=== PATIENT | male | born 1935 | race Caucasian/White ===

== ENCOUNTER 2019-07-16 19:21 | Inpatient (IN) | payer MEDICARE ==
[~2019-07-16] VITALS: Ht 175.3 cm; Wt 56.2 kg
--- NOTE | 2019-07-16 19:43 | NUR ---
PATIENT [facility] #144 FOR FLU LIKE SYMPTOMS. COUGH/LOW PO2 AT FACILITY OF 87 ON ROOM AIR. PATIENT AOX2. NOTED WITH OCCASIONAL NON PRODUCTIVE COUGH. CURRENT O2 SAT AT 98%.
[2019-07-16 20:03] LABS: BASOPHILS % (AUTO) 0.5 % (0.0-2.0); HEMATOCRIT 36.8 % (36.7-47.1); HEMOGLOBIN 12.8 g/dL (12.5-16.3); LYMPHOCYTES # (AUTO) 1.3 K/uL (20.0-40.0); LYMPHOCYTES % (AUTO) 14.3 % (20.5-51.5); MEAN CORPUSCULAR HEMOGLOBIN 31.1 uug (23.8-33.4); MEAN CORPUSCULAR HGB CONC 35 g/dL (32.5-36.3); MEAN CORPUSCULAR VOLUME 89.6 fL (73.0-96.2); MONOCYTES # (AUTO) 0.7 K/uL (2.0-10.0); MONOCYTES % (AUTO) 7.8 % (0.0-11.0); NEUTROPHILS # (AUTO) 6.9 K/uL (1.8-8.9); NEUTROPHILS % (AUTO) 77.4 % (38.5-71.5); PLATELET COUNT (AUTO) 199 K/uL (152-348); RED BLOOD CELL COUNT(AUTO) 4.11 MIL/uL (4.06-5.63)
[2019-07-16 20:12] LABS: POTASSIUM 4.1 mmol/L (3.5-5.1)
[2019-07-16 20:27] LABS: BILIRUBIN,DIRECT 0.2 mg/dL (0.0-0.2); BILIRUBIN,TOTAL 0.7 mg/dL (0.2-1.0); TOTAL PROTEIN, SERUM 7.9 g/dL (6.4-8.2)
[2019-07-16] MEDS ORDERED: ACETAMINOPHEN ES 500 MG TABLET ONE (20:27)
[2019-07-16] MEDS ORDERED: ACETAMINOPHEN ES 500 MG TABLET PO ONE (20:30)
[2019-07-16] MEDS ORDERED: LEVOFLOXACIN 750 MG/D5W 150 ML PIGGYBACK IV ONE (21:00)
--- NOTE | 2019-07-16 21:02 | NUR ---
Epic panel call placed, spoke to Cami stated she will get a hold of Dr. Jauregui for admitting.
[2019-07-16] MEDS ORDERED: LEVOFLOXACIN 750MG/D5W 150 ML IV ONE (21:10)
--- NOTE | 2019-07-16 21:14 | NUR ---
Dr Robins on panel call with Dr. Jauregui. Patient accepted for admission to Tele, Dx Resp. Failure .
--- NOTE | 2019-07-16 21:28 | NUR ---
Report given to Tele nurse Ramos. Patient will be admitted with Dx. of resp. failure under Dr. Jauregui on Rm #[id number].
[2019-07-16] MEDS ORDERED: Z GUARD REMEDY PASTE 57 GM TUBE TOP PRN (21:30)
[2019-07-16] MEDS ORDERED: HYDROCODONE/APAP 5-325MG TABLET PO PRN (21:30)
[2019-07-16] MEDS ORDERED: MAGNESIUM HYDROXIDE 30 ML LIQUID UDC PO PRN (21:30)
[2019-07-16] MEDS ORDERED: ONDANSETRON 4 MG/2 ML VIAL IV PRN (21:30)
[2019-07-16] MEDS ORDERED: ACETAMINOPHEN 325 MG TABLET PO PRN (21:30)
--- NOTE | 2019-07-16 21:36 | NUR ---
Telephone call from [facility] spoke to Cheyanne and gave update on patient condition and diagnosis of Respiratory Failure.
--- NOTE | 2019-07-16 21:57 | NUR ---
Pt. admitted to Tele floor, under care of Dr. Jauregui. Belongs List completed.
[2019-07-16 22:24] VITALS: BP 111/71
[2019-07-16] MEDS: IV NS 1000 ML 1,000 ML IV SCH (22:25)
--- NOTE | 2019-07-16 22:30 | NUR ---
Received patient on unit around 0, via gurney wheeled in by ER nurse. Pt awake, alert and oriented x 2. Able to state his name and time of day, but had to be reminded of where he is and why he is here. Able to answer simple questions, but with some delay and episodes of refusing to answer. Unable to get full history on patient, with this condition, but able to answer most of it. All belongings accounted for. Initial admission process started. Skin intact, with some slight redness on sacral area. Mepilex placed for protection. Dr. Jauregui confirmed that patient will not be on TELE, but Med Surg. Kept call light within reach, education provided on use of call light and other fall/safety precautions. Will continue to monitor.
[2019-07-17] MEDS ORDERED: IV NORMAL SALINE 500 ML IV ONE (01:15)
[2019-07-17 05:12] VITALS: BP 141/76
--- NOTE | 2019-07-17 06:02 | NUR ---
Slept well through the night with no adverse issues. Patient refused labs and insertion of in and out catheter to take urine sample. Unable to be given full directions to pee on the urinal for clean catch. Noted with generalized weakness and episodic confusion. Risks and benefits explained Will continue to monitor.
--- NOTE | 2019-07-17 08:00 | NUR ---
received pt. resting in bed. Pt. has IV in L wrist 20 gauge intact patent running prescribed fluids. pt. denies pain/ discomfort. pt. denies SOB/ difficulty breathing. Safety measures in place. call light within reach. will continue to monitor pt.
[2019-07-17] MEDS ORDERED: LACTOSE FREE FOOD PO SCH (09:00)
[2019-07-17] MEDS: MULTIVITAMINS,THERAPEUTIC TABLET PO SCH (09:38)
[2019-07-17] MEDS: FLUOXETINE HCL 20 MG CAPSULE PO SCH (09:38)
[2019-07-17] MEDS: ATENOLOL 50 MG TABLET PO SCH (09:39)
[2019-07-17] MEDS: CHOLECALCIFEROL 1,000 UNIT TABLET PO SCH (09:39)
[2019-07-17] MEDS: ASPIRIN 81 MG TAB.CHEW PO SCH (09:39)
[2019-07-17] MEDS: DOCUSATE SODIUM 100 MG CAPSULE PO SCH ×2 (09:39→18:05)
[2019-07-17] MEDS: VALSARTAN 160 MG TABLET PO SCH (09:39)
[2019-07-17] MEDS: CYANOCOBALAMIN 1,000 MCG TABLET PO SCH (09:41)
[2019-07-17 11:10] VITALS: BP 145/76
[2019-07-17] MEDS: ENSURE CLEAR 240 ML LIQUID (MIX BERRY) PO SCH ×2 (11:12→18:05)
[2019-07-17] MEDS: IV NS 1000 ML 1,000 ML IV SCH (11:39)
--- NOTE | 2019-07-17 12:24 | NUR ---
WOUND CARE CONSULT: PT PRESENTS WITH SACRAL SCAR, PRESENT ON ADMISSION. PT IS INCONTINENT. RECOMMENDATIONS MADE FOR SKIN PROTECTION. DISCUSSED WITH NURSING STAFF. WILL SEE PRN. MOYA IN AGREEMENT WITH PLAN OF CARE. CURRENT ANISH SCORE IS 16. Addendum: 07/17/19 at 1225 by MARK SOLIS RN Amended: Links added.
[2019-07-17 15:15] VITALS: BP 133/81
[2019-07-17 19:07] LABS: *BILIRUBIN,URIN NEGATIVE (NEGATIVE); *BLOOD, URINE NEGATIVE (NEGATIVE); *CLARITY,URINE CLEAR (CLEAR); *COLOR,URINE YELLOW (YELLOW); *KETONES,URINE NEGATIVE (NEGATIVE); LEUKOCYTE ESTERASE ,URINE NEGATIVE (NEGATIVE); NITRITE, URINE NEGATIVE (NEGATIVE); UGLUCOSE NEGATIVE (NEGATIVE)
--- NOTE | 2019-07-17 19:22 | NUR ---
Pt. resting in bed. Pt. removed IV in L wrist 20 gauge. Attempted to put in new IV will have PM nurse try. Provided pt. with tylenol per request of pt. for mild pain. pt. denies SOB/ difficulty breathing. Pt O2 within normal limits on room air. Spoke to son about plan of care. Phone number of karina Olivarez is [phone]. Safety measures in place. call light within reach. will continue to monitor pt.
[2019-07-17 20:11] LABS: BACTERIA,URINE NONE SEEN /HPF (NONE SEEN); MUCUS,URINE FEW /LPF (0-FEW); RBC,URINE 0-3 /HPF (0-3); SQUAMOUS EPITHELIAL CELL,UR NONE SEEN /HPF (NONE SEEN); WBC,URINE 0-3 /HPF (0-3)
[2019-07-17] MEDS: TRAZODONE 50 MG TABLET PO SCH (20:56)
[2019-07-17] MEDS: ATORVASTATIN 10 MG TABLET PO SCH (20:56)
[2019-07-17 21:03] VITALS: BP 155/67
[2019-07-17] MEDS: LEVOFLOXACIN 500 MG/D5W 500 MG in PREMIXED 1 EACH IV SCH (21:18)
[2019-07-17] MEDS ORDERED: GUAIFENESIN/CODEINE 5 ML LIQUID UDC PO PRN (22:30)
--- NOTE | 2019-07-18 00:45 | NUR ---
endorsed to KELSEY Mcguire d/t change of assignment.
[2019-07-18] MEDS ORDERED: IV NS 1000 ML 1,000 ML IV PRN (01:00)
[2019-07-18 05:00] VITALS: BP 117/69
--- NOTE | 2019-07-18 05:14 | NUR ---
Patient sleep well last night. In no acute distress. Denies any pain or SOB. VS WNL. IV site on left FA intact and patent. IVF infusing. No adverse reaction noted from IV ABX. Needs assessed and attended to. Safety measure maintained and call guerrero within reached.
[2019-07-18 06:53] LABS: EOSINOPHILS % (AUTO) 0.2 % (0.0-7.0); LYMPHOCYTES # (AUTO) 1.6 K/uL (20.0-40.0); MONOCYTES # (AUTO) 0.6 K/uL (2.0-10.0)
[2019-07-18 06:59] LABS: CARBON DIOXIDE 26 mmol/L (21-32); CHLORIDE 102 mmol/L (98-107); CREATININE 0.8 mg/dL (0.6-1.3); GLUCOSE 93 mg/dL (74-106); POTASSIUM 3.3 mmol/L (3.5-5.1); UREA NITROGEN, BLOOD 34 mg/dL (7-18)
[2019-07-18 07:10] LABS: BASOPHILS % (AUTO) 0.5 % (0.0-2.0); LYMPHOCYTES % (AUTO) 24.2 % (20.5-51.5); MEAN CORPUSCULAR HGB CONC 35 g/dL (32.5-36.3); NEUTROPHILS # (AUTO) 4.4 K/uL (1.8-8.9); NEUTROPHILS % (AUTO) 66.1 % (38.5-71.5); PLATELET COUNT (AUTO) 181 K/uL (152-348); RED BLOOD CELL COUNT(AUTO) 3.36 MIL/uL (4.06-5.63)
[2019-07-18 07:12] LABS: HEMOGLOBIN 10.4 g/dL (12.5-16.3); WHITE BLOOD COUNT (AUTO) 6.6 K/uL (3.6-10.2)
[2019-07-18 07:13] LABS: HEMATOCRIT 29.6 % (36.7-47.1)
[2019-07-18] MEDS: ENSURE CLEAR 240 ML LIQUID (MIX BERRY) PO SCH ×2 (08:00→17:25)
[2019-07-18] MEDS: DOCUSATE SODIUM 100 MG CAPSULE PO SCH ×2 (10:40→17:00)
[2019-07-18] MEDS: ASPIRIN 81 MG TAB.CHEW PO SCH (10:40)
[2019-07-18] MEDS: MULTIVITAMINS,THERAPEUTIC TABLET PO SCH (10:41)
[2019-07-18] MEDS: VALSARTAN 160 MG TABLET PO SCH (10:41)
[2019-07-18] MEDS: FLUOXETINE HCL 20 MG CAPSULE PO SCH (10:41)
[2019-07-18] MEDS: ATENOLOL 50 MG TABLET PO SCH (10:41)
[2019-07-18] MEDS: CHOLECALCIFEROL 1,000 UNIT TABLET PO SCH (10:42)
[2019-07-18] MEDS: CYANOCOBALAMIN 1,000 MCG TABLET PO SCH (10:42)
[2019-07-18 11:22] VITALS: BP 129/69
[2019-07-18] MEDS ORDERED: POTASSIUM CHLORIDE 20 MEQ TAB.PRT.SR PO ONE (14:45)
[2019-07-18 15:21] VITALS: BP 135/81
[2019-07-18 20:04] VITALS: BP 135/75
[2019-07-18] MEDS: ATORVASTATIN 10 MG TABLET PO SCH (20:11)
[2019-07-18] MEDS: LEVOFLOXACIN 500 MG/D5W 500 MG in PREMIXED 1 EACH IV SCH (20:11)
[2019-07-18] MEDS: TRAZODONE 50 MG TABLET PO SCH (20:11)
[2019-07-19 06:00] VITALS: BP 168/87
[2019-07-19 06:49] LABS: CREATININE 0.7 mg/dL (0.6-1.3); POTASSIUM 3.6 mmol/L (3.5-5.1)
--- NOTE | 2019-07-19 06:51 | NUR ---
patient received in bed. a/o x1. v/s stable and no signs of distress throughout shift. safety and comfort measures provided. meplix on sacrum applied. all medications administered and all needs met. will continue to monitor and endorse to morning nurse.
--- NOTE | 2019-07-19 07:55 | NUR ---
Received pt. resting in bed. Pt. has IV in L wrist 20 gauge intact patent running prescribed fluids. pt. denies pain/ discomfort. no acute distress noted. denies SOB/ difficulty breathing. Safety measures in place. call light within reach. will continue to monitor pt. for safety and comfort.
[2019-07-19] MEDS: ENSURE CLEAR 240 ML LIQUID (MIX BERRY) PO SCH (08:01)
[2019-07-19] MEDS: CHOLECALCIFEROL 1,000 UNIT TABLET PO SCH (08:36)
[2019-07-19] MEDS: DOCUSATE SODIUM 100 MG CAPSULE PO SCH (08:37)
[2019-07-19] MEDS: FLUOXETINE HCL 20 MG CAPSULE PO SCH (08:37)
[2019-07-19] MEDS: VALSARTAN 160 MG TABLET PO SCH (08:37)
[2019-07-19] MEDS: ATENOLOL 50 MG TABLET PO SCH (08:37)
[2019-07-19] MEDS: CYANOCOBALAMIN 1,000 MCG TABLET PO SCH (08:38)
[2019-07-19] MEDS: MULTIVITAMINS,THERAPEUTIC TABLET PO SCH (08:38)
[2019-07-19] MEDS: ASPIRIN 81 MG TAB.CHEW PO SCH (08:38)
[2019-07-19 10:13] LABS: BASOPHILS # (AUTO) 0.1 K/uL (0.0-8.0); BASOPHILS % (AUTO) 0.8 % (0.0-2.0); EOSINOPHILS # (AUTO) 0.1 K/uL (0.0-0.7); EOSINOPHILS % (AUTO) 0.8 % (0.0-7.0); HEMOGLOBIN 10.7 g/dL (12.5-16.3); LYMPHOCYTES # (AUTO) 1.8 K/uL (20.0-40.0); LYMPHOCYTES % (AUTO) 27.5 % (20.5-51.5); MEAN CORPUSCULAR HEMOGLOBIN 31.5 uug (23.8-33.4); MEAN CORPUSCULAR HGB CONC 36 g/dL (32.5-36.3); MEAN CORPUSCULAR VOLUME 88.6 fL (73.0-96.2); MONOCYTES # (AUTO) 0.5 K/uL (2.0-10.0); NEUTROPHILS # (AUTO) 4.2 K/uL (1.8-8.9); NEUTROPHILS % (AUTO) 62.9 % (38.5-71.5); PLATELET COUNT (AUTO) 196 K/uL (152-348); RED BLOOD CELL COUNT(AUTO) 3.39 MIL/uL (4.06-5.63); WHITE BLOOD COUNT (AUTO) 6.7 K/uL (3.6-10.2)
[2019-07-19] MEDS ORDERED: LISINOPRIL 5 MG TABLET PO SCH (10:15)
[2019-07-19 12:05] VITALS: BP 147/78
[2019-07-19 15:48] VITALS: BP 158/89
--- NOTE | 2019-07-19 17:25 | NUR ---
PT HAS BEEN DISCHARGED TO [facility]. DISCHARGE INSTRUCTIONS GIVEN TO TRANSPORT STAFF FOR DELIVERY TO FACILITY. BELONGINGS LIST SIGNED. BELONGINGS RETURNED. NO ACUTE DISTRESS OR SOB NOTED. IV LINE REMOVED INTACT. PT ALERT AND ORIENTED X3. PT ESCORTED TO AMBULANCE BY AMBULANCE STAFF. CALLED IN Rx FOR PT TO PREFERRED PHARMACY.
== END 2019-07-19 17:30 | DRG 193 ==
LOC: ER 19:24 → TELE3 21:42 → MEDSURG3 21:43
PROVIDERS: ADMIT Family Medicine; ATTEND Family Medicine
DX: J15.9 Unspecified bacterial pneumonia (principal); N17.0 Acute kidney failure with tubular necrosis; I13.0 Hypertensive heart and chronic kidney disease with heart failure and stage 1 through stage 4 chronic kidney disease, or unspecified chronic kidney disease; E87.1 Hypo-osmolality and hyponatremia; J40 Bronchitis, not specified as acute or chronic; R06.03 Acute respiratory distress; Z95.5 Presence of coronary angioplasty implant and graft; N18.2 Chronic kidney disease, stage 2 (mild); E78.5 Hyperlipidemia, unspecified; R79.1 Abnormal coagulation profile; I12.9 Hypertensive chronic kidney disease with stage 1 through stage 4 chronic kidney disease, or unspecified chronic kidney disease; F32.9 Major depressive disorder, single episode, unspecified; I45.10 Unspecified right bundle-branch block; Z79.899 Other long term (current) drug therapy; Z82.49 Family history of ischemic heart disease and other diseases of the circulatory system; Z79.82 Long term (current) use of aspirin; E86.1 Hypovolemia
CPT/HCPCS: 36415; 70030-TC; 71045; 83605; 85025; 85730; 87040; 87086; 87400; 93005; 93307; A4663; A9150; G0378; J1956; J7030; J7040